=== PATIENT | female | born 1940 | race Caucasian/White ===

== ENCOUNTER 2018-03-08 05:50 | Inpatient (IN) | payer OTHER ==
[2018-03-02 15:23] VITALS: BMI 32.4
[2018-03-08] MEDS ORDERED: MIDAZOLAM HCL 2 MG/2 ML SINGLE DOSE VIAL ONE (07:00)
[2018-03-08] MEDS ORDERED: BUPIVACAINE HCL/PF (5 MG/ML) 30 ML VIAL IJ ONE (07:01)
[2018-03-08] MEDS ORDERED: BUPIVACAINE LIPOSOME/PF (EXPAREL) 266 MG/20 ML VIAL ONE (07:01)
[2018-03-08] MEDS ORDERED: KETOROLAC TROMETHAMINE 60 MG/2 ML VIAL ONE (07:52)
[2018-03-08] MEDS ORDERED: EPINEPHrine/PF 1 MG/1 ML (1:1,000) AMPULE ONE (07:52)
[2018-03-08] MEDS ORDERED: BUPIVACAINE HCL/PF 2.5 MG/ML - 30 ML VIAL IJ ONE (07:53)
[2018-03-08] MEDS ORDERED: MORPHINE SULFATE 10 MG/1 ML *VIAL ONE (07:56)
[2018-03-08] MEDS ORDERED: CEFAZOLIN 2 GM in DEXTROSE 5%-WATER - 50 ML IVPB ONE (08:00)
[2018-03-08] MEDS ORDERED: VANCOMYCIN 1,250 MG in DEXTROSE 5%-WATER - 250 ML IVPB ONE (08:00)
[2018-03-08] MEDS ORDERED: PROPOFOL 20 ML ONE (08:39)
[2018-03-08] MEDS ORDERED: ceFAZolin SODIUM 1 GM VIAL ONE ×2 (08:49→10:41)
[2018-03-08] MEDS ORDERED: DESFLURANE GAS 240 ML BOTTLE IH ONE (09:38)
[2018-03-08] MEDS ORDERED: fentaNYL CITRATE 250 MCG/5 ML VIAL ONE (09:48)
[2018-03-08] MEDS ORDERED: ONDANSETRON 4 MG/2 ML VIAL ONE (10:46)
[2018-03-08] MEDS ORDERED: ONDANSETRON 4 MG/2 ML VIAL IVPUSH PRN (11:37)
[2018-03-08] MEDS ORDERED: MAG HYDROX/AL HYDROX/SIMETH 30 ML UNIT-DOSE CUP PO PRN (11:37)
[2018-03-08] MEDS ORDERED: MAGNESIUM HYDROX 2400MG/30ML ORAL SUSPENSION 30 ML CUP PO PRN (11:37)
--- NOTE | 2018-03-08 11:37 | OP ---
Operative Note - Note: Operative Date: 03/08/18 Pre-Operative Diagnosis: Right knee osteoarthritis, degenerative joint disease Operation: Right total knee replacement Findings: as dictated Implants: as dictated Post-Operative Diagnosis: Same as Pre-op Surgeon: Luis Poon Pc Installation Engineer: Giorgio Friend Anesthesiologist/COSTING ANALYST: Geronimo Ching Anesthesia: General, Local (Block: selective tibial and saphenous blocks) Specimens Removed: bone cuts Estimated Blood Loss (mls): 25 (ml) Drains & Tubes with Location: Intra-articular hemovac. Tourniquet 118mins at 400mmHg Operative Report Dictated: Yes
[2018-03-08] MEDS ORDERED: LACTATED RINGERS SOLUTION 1,000 ML IV SCH ×2 (11:45→12:00)
[2018-03-08] MEDS ORDERED: ARTIFICIAL TEARS (POLYVINYL ALCOHOL) OPTH DROPS OU PRN (11:46)
[2018-03-08] MEDS ORDERED: ACETAMINOPHEN 1000 MG/100 ML VIAL (NON FORMULARY) IVPB ONE ×2 (11:49→11:55)
[2018-03-08] MEDS ORDERED: oxyCODONE HCL 5 MG TABLET PO PRN (11:49)
[2018-03-08] MEDS ORDERED: ONDANSETRON 4 MG/2 ML VIAL IVPUSH ONE (11:58)
--- NOTE | 2018-03-08 12:09 | CONSULT ---
Consultation: REQUESTING PROVIDER: Dr. Luis Poon CONSULT REQUEST: We have been asked to medically follow this patient in the post -operative phase. HISTORY OF PRESENT ILLNESS: 77 year-old female with a PMH significant for HTN, HLD, NIDDM, recurrent UTIs, trigeminal neuralgia, and right knee osteoarthritis s/p right total knee replacement today with Dr. Luis Poon. REVIEW OF SYSTEMS: CONSTITUTIONAL: Absent: fever, chills, diaphoresis, generalized weakness, malaise, loss of appetite, weight change HEENT: Absent: rhinorrhea, nasal congestion, throat pain, throat swelling, difficulty swallowing, mouth swelling, ear pain, eye pain, visual changes CARDIOVASCULAR: Absent: chest pain, syncope, palpitations, irregular heart rate, lightheadedness , peripheral edema RESPIRATORY: Absent: cough, shortness of breath, dyspnea with exertion, orthopnea, wheezing, stridor, hemoptysis GASTROINTESTINAL: Absent: abdominal pain, abdominal distension, nausea, vomiting, diarrhea, constipation, melena, hematochezia GENITOURINARY: Absent: dysuria, frequency, urgency, hesitancy, hematuria, flank pain, genital pain MUSCULOSKELETAL: Absent: myalgia, arthralgia, joint swelling, back pain, neck pain SKIN: Absent: rash, itching, pallor HEMATOLOGIC/IMMUNOLOGIC: Absent: easy bleeding, easy bruising, lymphadenopathy, frequent infections ENDOCRINE: Absent: unexplained weight gain, unexplained weight loss, heat intolerance, cold intolerance NEUROLOGIC: Absent: headache, focal weakness or paresthesias, dizziness, unsteady gait, seizure, mental status changes, bladder or bowel incontinence PSYCHIATRIC: Absent: anxiety, depression, suicidal or homicidal ideation, hallucinations. PHYSICAL EXAMINATION Vital Signs - 24 hr 03/08/18 03/08/18 06:44 11:45 Temperature 98.6 F 98.2 F Pulse Rate 74 86 Respiratory 18 22 H Rate Blood Pressure 178/84 H 162/61 O2 Sat by Pulse 98 Oximetry (%) GENERAL: Awake, alert, and fully oriented, in no acute distress. HEAD: Normal with no signs of trauma. EYES: Pupils equal, round and reactive to light, sclera anicteric, conjunctiva clear. No lid lag. EARS, NOSE, THROAT: Ears normal, nares patent, oropharynx clear without exudates. Moist mucous membranes. LUNGS: Breath sounds equal, clear to auscultation bilaterally. No wheezes, and no crackles. No accessory muscle use. HEART: Regular rate and rhythm, normal S1 and S2 + murmur ABDOMEN: Soft, nontender, not distended UPPER EXTREMITIES: 2+ pulses, warm, well-perfused. No cyanosis. No clubbing. Cap refill <2 seconds. No peripheral edema. LOWER EXTREMITIES: Surgical compression bandages, SCDs, TEDs in place, c/d/i; + flexion/extension toes NEUROLOGICAL: Cranial nerves II-XII intact. Normal speech. Laboratory Results - last 24 hr 03/08/18 06:34 POC Glucometer 163 Active Medications Generic Name Dose Route Start Last Admin Trade Name Freq PRN Reason Stop Dose Admin Acetaminophen 1,000 mg 03/08/18 11:49 Ofirmev Injection - IVPB 03/08/18 11:50 ONCE ONE Al Hydroxide/Mg Hydroxide 30 ml 03/08/18 11:37 Mylanta Oral Suspension - PO Q4H PRN DYSPEPSIA Aspirin 81 mg 03/08/18 22:00 Ecotrin - PO BID VAIBHAV Carbamazepine 300 mg 03/08/18 22:00 Tegretol Xr - PO BID VAIBHAV Fentanyl 50 mcg 03/08/18 11:49 Sublimaze Injection - IVPUSH [id number] PRN PAIN-PACU ORDER X 4 DOSES ONLY Gabapentin 400 mg 03/08/18 22:00 Neurontin - PO BID VAIBHAV Cefazolin Sodium 2 gm/ 50 mls @ 200 mls/hr 03/08/18 16:30 Dextrose IVPB 03/08/18 18:14 Q8H-IV VAIBHAV Lactated Ringer's 1,000 mls @ 125 mls/hr 03/08/18 11:45 Lactated Ringers Solution IV 03/09/18 06:00 ASDIR VAIBHAV Lactated Ringer's 1,000 mls @ 75 mls/hr 03/08/18 12:00 Lactated Ringers Solution IV ASDIR VAIBHAV Magnesium Hydroxide 30 ml 03/08/18 11:37 Milk Of Magnesia - PO PRN PRN CONSTIPATION Multivitamins/Minerals/Vitamin C 1 tab 03/09/18 10:00 Tab-A-Vit - PO DAILY VAIBHAV Nitrofurantoin Macrocrystals 50 mg 03/08/18 22:00 Macrodantin - PO HS VAIBHAV Non-Formulary Medication 1 each 03/08/18 11:46 Polyvinyl Alcohol/Povidone/Pf [Refresh Classic Eye Drops] OP ASDIR PRN FOR ITCHING Non-Formulary Medication 80 mg 03/09/18 10:00 Telmisartan [Micardis] PO DAILY VAIBHAV Ondansetron HCl 4 mg 03/08/18 11:37 Zofran Injection IVPUSH Q6H PRN NAUSEA Oxycodone HCl 5 mg 03/08/18 11:49 Roxicodone - PO Q3H PRN PAIN LEVEL 1-5 Oxycodone HCl 10 mg 03/08/18 11:49 Roxicodone - PO Q3H PRN PAIN LEVEL 6-10 Pantoprazole Sodium 40 mg 03/09/18 10:00 Protonix - PO DAILY VAIBHAV Quetiapine Fumarate 50 mg 03/08/18 22:00 Seroquel - PO HS VAIBHAV Rosuvastatin Calcium 10 mg 03/09/18 10:00 Crestor - PO DAILY VAIBHAV Senna/Docusate Sodium tablet 03/08/18 22:00 Pericolace - PO BID VAIBHAV ASSESSMENT/PLAN: 77 year-old female with a PMH significant for HTN, HLD, NIDDM, recurrent UTIs, trigeminal neuralgia, and right knee osteoarthritis s/p right total knee replacement today with Dr. Luis Poon. Right total knee replacement --POD #0 --pain management per surgery --perioperative antibiotics --follow Hemovac output, daily h/h --bowel regimen --incentive spirometry --ASA 81mg BID x 6 weeks Hypertension --valsartan 320mg daily (dose equivalent for telmisartan) Hyperlipidemia --continue Crestor NIDDM --Novolog sliding scale coverage Recurrent UTIs --continue Macrobid 50mg qhs long-term prophylaxis Trigeminal neuralgia --continue Gabapentin Insomnia --continue carbamazepine, Seroquel FEN Fluids: LR@75mL/hr Electrolytes: replete as indicated Nutrition: clears DVT prophylaxis: ASA, SCDs, TEDs, oob, ambulation Physical therapy Dispo: We will continue to follow the patient. Thank you for this consultative opportunity. Visit type - Emergency Visit Emergency Visit: No - New Patient This patient is new to me today: Yes Date on this admission: 03/08/18 - Critical Care Critical Care patient: No
[2018-03-08] MEDS ORDERED: FAMOTIDINE 20 MG PREMIXED IVPB IVPB ONE (12:15)
[2018-03-08] MEDS ORDERED: FAMOTIDINE 20 MG/50 ML IVPB 20 MG/50 ML MG IVPB ONE (12:18)
--- NOTE | 2018-03-08 13:11 | HP ---
CHIEF COMPLAINT: PCP: HISTORY OF PRESENT ILLNESS: ER course was notable for: (1) (2) (3) Recent Travel: PAST MEDICAL HISTORY: PAST SURGICAL HISTORY: Social History: Smoking: Alcohol: Drugs: Family History: Allergies blueberry Allergy (Severe, Verified 03/02/18 14:31) Rash,ITCHING strawberry Allergy (Severe, Verified 03/02/18 14:29) Itching,RED RASH No Known Drug Allergies Allergy (Verified 03/02/18 14:31) HOME MEDICATIONS: Home Medications Medication Instructions Recorded Aspirin [Ecotrin] 81 mg PO DAILY 03/02/18 Carbamazepine Xr [Tegretol Xr -] 300 mg PO BID 03/02/18 Gabapentin [Neurontin] 400 mg PO BID 03/02/18 Meloxicam 15 mg PO ASDIR PRN 03/02/18 Metformin HCl [Metformin HCl ER] 500 mg PO DAILY 03/02/18 Nitrofurantoin Macrocrystal 50 mg PO HS 03/02/18 [Nitrofurantoin] Polyvinyl Alcohol/Povidone/Pf 1 each OP ASDIR PRN 03/02/18 [Refresh Classic Eye Drops] Quetiapine Fumarate [Seroquel -] 50 mg PO HS 03/02/18 Rosuvastatin Calcium [Crestor] 10 mg PO DAILY 03/02/18 Sitagliptin Phosphate [Januvia] 100 mg PO DAILY 03/02/18 Telmisartan [Micardis] 80 mg PO DAILY 03/02/18 REVIEW OF SYSTEMS CONSTITUTIONAL: Absent: fever, chills, diaphoresis, generalized weakness, malaise, loss of appetite, weight change HEENT: Absent: rhinorrhea, nasal congestion, throat pain, throat swelling, difficulty swallowing, mouth swelling, ear pain, eye pain, visual changes CARDIOVASCULAR: Absent: chest pain, syncope, palpitations, irregular heart rate, lightheadedness , peripheral edema RESPIRATORY: Absent: cough, shortness of breath, dyspnea with exertion, orthopnea, wheezing, stridor, hemoptysis GASTROINTESTINAL: Absent: abdominal pain, abdominal distension, nausea, vomiting, diarrhea, constipation, melena, hematochezia GENITOURINARY: Absent: dysuria, frequency, urgency, hesitancy, hematuria, flank pain, genital pain MUSCULOSKELETAL: Absent: myalgia, arthralgia, joint swelling, back pain, neck pain SKIN: Absent: rash, itching, pallor HEMATOLOGIC/IMMUNOLOGIC: Absent: easy bleeding, easy bruising, lymphadenopathy, frequent infections ENDOCRINE: Absent: unexplained weight gain, unexplained weight loss, heat intolerance, cold intolerance NEUROLOGIC: Absent: headache, focal weakness or paresthesias, dizziness, unsteady gait, seizure, mental status changes, bladder or bowel incontinence PSYCHIATRIC: Absent: anxiety, depression, suicidal or homicidal ideation, hallucinations. PHYSICAL EXAMINATION Vital Signs - 24 hr 03/08/18 03/08/18 03/08/18 06:44 11:45 11:50 Temperature 98.6 F 98.2 F Pulse Rate 74 86 86 Respiratory 18 22 H 22 H Rate Blood Pressure 178/84 H 162/61 160/62 O2 Sat by Pulse 98 98 Oximetry (%) 03/08/18 03/08/18 03/08/18 11:55 12:00 12:15 Temperature Pulse Rate 86 85 81 Respiratory 22 H 20 18 Rate Blood Pressure 158/61 160/55 L 169/67 O2 Sat by Pulse 98 100 96 Oximetry (%) 03/08/18 03/08/18 12:30 12:45 Temperature Pulse Rate 88 80 Respiratory 18 18 Rate Blood Pressure 174/63 H 166/68 O2 Sat by Pulse 97 100 Oximetry (%) GENERAL: Awake, alert, and fully oriented, in no acute distress. HEAD: Normal with no signs of trauma. EYES: Pupils equal, round and reactive to light, extraocular movements intact, sclera anicteric, conjunctiva clear. No lid lag. EARS, NOSE, THROAT: Ears normal, nares patent, oropharynx clear without exudates. Moist mucous membranes. NECK: Normal range of motion, supple without lymphadenopathy, JVD, or masses. LUNGS: Breath sounds equal, clear to auscultation bilaterally. No wheezes, and no crackles. No accessory muscle use. HEART: Regular rate and rhythm, normal S1 and S2 without murmur, rub or gallop. ABDOMEN: Soft, nontender, not distended, normoactive bowel sounds, no guarding, no rebound, no masses. No hepatomegaly or splenomegaly. MUSCULOSKELETAL: Normal range of motion at all joints. No bony deformities or tenderness. No CVA tenderness. UPPER EXTREMITIES: 2+ pulses, warm, well-perfused. No cyanosis. No clubbing. No peripheral edema. LOWER EXTREMITIES: 2+ pulses, warm, well-perfused. No calf tenderness. No peripheral edema. NEUROLOGICAL: Cranial nerves II-XII intact. Normal speech. Normal gait. PSYCHIATRIC: Cooperative. Good eye contact. Appropriate mood and affect. SKIN: Warm, dry, normal turgor, no rashes or lesions noted, normal capillary refill. Laboratory Results - last 24 hr 03/08/18 03/08/18 06:34 11:51 POC Glucometer 163 244 ASSESSMENT/PLAN:
--- NOTE | 2018-03-08 15:31 | OP ---
DATE OF OPERATION: 03/08/2018 SURGEON: Luis Poon MD DIRECTOR OF WORKFORCE DEVELOPMENT: RAUL Zamora PREOPERATIVE DIAGNOSIS: Avascular necrosis with chondrolysis, right knee. POSTOPERATIVE DIAGNOSIS: Avascular necrosis with chondrolysis, right knee. OPERATION PERFORMED: Right cemented posterior stabilized total knee arthroplasty (Priya). ANESTHESIA: General anesthesia with peripheral block. ANTIBIOTICS: Kefzol 2 g, vancomycin 1 g preoperatively. Kefzol 1 g given at the time of release of tourniquet. OPERATION IN DETAIL: The patient was correctly identified and brought into the operating room. The right lower extremity was prepped and draped in the routine manner with Betadine scrub solution, wiped with alcohol, and DuraPrep was applied. No deformity noted here. A midline incision was utilized. The patella was capsized laterally after incising longitudinally the quadriceps tendon, skirting around the parapatellar margin on the medial side of the patella to the medial aspect of the tibial tubercle, the soft tissue directly off the bone. The Hoffa fat pad was three-quarters resected. The patella was capsized laterally. The [email or web address] jig system was inserted for the appropriate jig cuts. The tibia was cut to a neutral alignment, aligned to the tibial tubercle and centered with the talus. The starter drill was inserted into the actual entry point just anterior to the PCL. Tig setting was at 4.5 degrees of valgus and 3 degrees of external rotation. There was no proximalization of the joint line. The patella was cut from neutral from patellar ligament to the quadriceps tendon. The appropriate lollipop jig was applied for a 27-mm patellar button. The jigs were then inserted onto the femur and the jigs cutting made in one setting. This measured for a size 3 femur, size 3 tibia and a 27-mm patellar button. The spacer blocks inserted at 10 mm revealed an equal flexion/extension gap of 9 mm. Complete stability was appreciated in both the sagittal and coronal planes. Once this had been performed, all jig cuts had been made. The bone bed was thoroughly lavaged with pulse lavage. Cementing was in one stage; that is, femur, tibia and patella. All extraneous cement was removed. The knee was reduced with a 9-mm trial polyethylene liner and revealed excellent anatomic alignment and a full range of movement from 0 to 130 degrees, with complete stability from the coronal sagital rotational plane at 90 degrees of flexion and 0 degrees of flexion. Once the cement had cured and the extraneous cement was removed, the tissues were thoroughly lavaged. It must be noted that before cementing, the bone bed was thoroughly pulse lavaged appropriately to be rid of all fats and exudative products. The closure was as follows: Quadriceps tendon and prepatellar fascia 1 Vicryl, subcutaneous 1 and 2-0 Vicryl, skin 3-0 Monocryl with Steri-Strips. Drainage 1/8-inch Hemovac x1. The operation went extremely well with no complications. MD DONI Knox/[id number] MTDD
[2018-03-08] MEDS: CEFAZOLIN 2 GM/D5W 2 GM/50 ML ML IVPB SCH (16:30)
[2018-03-08] MEDS ORDERED: PT OWN MED DRAWER 7, Y5N ONE (21:12)
[2018-03-08] MEDS: NITROFURANTOIN MACROCRYSTAL 50 MG CAPSULE (FP) PO SCH ×2 (21:25→21:52)
[2018-03-08] MEDS: ASPIRIN COATED 81 MG TABLET.EC PO SCH (21:25)
[2018-03-08] MEDS: GABAPENTIN 400 MG CAPSULE (FP) PO SCH (21:25)
[2018-03-08] MEDS: QUEtiapine FUMARATE 25 MG TABLET (FP) PO SCH ×2 (21:25→21:52)
[2018-03-08] MEDS: SENNOSIDES/DOCUSATE COMBO (SENNA PLUS) TABLET (UD) PO SCH ×2 (21:25→21:52)
[2018-03-08] MEDS: INSULIN (NOVOLOG) ASPART 100 UNITS/ML 10ML VIAL SQ SCH ×2 (21:31→21:45)
[2018-03-09] MEDS: CEFAZOLIN 2 GM/D5W 2 GM/50 ML ML IVPB SCH (01:45)
[2018-03-09] MEDS: INSULIN (NOVOLOG) ASPART 100 UNITS/ML 10ML VIAL SQ SCH ×5 (06:44→21:38)
--- NOTE | 2018-03-09 08:07 | PN ---
Progress Note (short form) - Note Progress Note: POD #1 Alert. Sitting in chair at bedside. Daughter present who translated. C/o incisional pain. Adequate pain control with medications ordered. Denies n/v/f/c, CP, palpiations or SOB. Last Vital Signs Temp Pulse Resp BP Pulse Ox 99.0 F 83 18 157/47 L 96 //18 09:43 03/09/18 09:43 03/09/18 09:43 03/09/18 09:43 03/09/18 09:43 CBC, BMP 03/09/18 07:29 03/09/18 07:29 Gen: nad LE: RLE dressing c/d/i. hemovac 180 mL. calf soft/supple/nt bilat. leg in extension. Problem List - Problems (1) Right knee DJD Assessment/Plan: (1) Right knee DJD Assessment/Plan: POD #1 s/p Right TKR -Pain control. -DVT PPx: -Chemical: ASA 81 mg po BID x 6 weeks -Mechanical: SHEBA's, SCD's -Incentive Spirometry. -PT/OT/Rehab, OOB. -WBAT RLE -Will dc drain AM -f/u am labs. -Care per medical hospitalist team. 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
[2018-03-09 08:14] LABS: HEMOGLOBIN 10.6 GM/dl (10.7-15.3); MCH 27.8 pg (25.7-33.7); MCHC 32.1 g/dl (32.0-36.0); MEAN CELL VOLUME 86.6 fl (80-96); MEAN PLT VOLUME 8.9 fl (7.5-11.1); PLATELET COUNT 247 K/MM3 (134-434); RBC 3.81 M/mm3 (3.60-5.2); WHITE BLOOD COUNT 10.1 K/mm3 (4.0-10.8)
[2018-03-09 08:28] LABS: ANION GAP 5 MMOL/L (8-16); BLOOD UREA NITROGEN 8 mg/dl (7-18); CHLORIDE 102 mmol/L (98-107); CO2 27 mmol/L (22-28); CREATININE 0.5 mg/dl (0.6-1.3); GLUCOSE,RANDOM 226 mg/dl (74-106); MAGNESIUM 1.8 mg/dL (1.8-2.4); POTASSIUM 3.9 mmol/L (3.5-5.1); SODIUM 134 mmol/L (136-145)
[2018-03-09 08:33] LABS: ALBUMIN 3.1 g/dl (3.5-5.0); BILIRUBIN,TOTAL 0.4 mg/dl (0.2-1.0); TOT PROT 5.9 g/dl (6.4-8.3)
--- NOTE | 2018-03-09 08:37 | PN ---
Physical Exam: SUBJECTIVE: Patient seen and examined oob to chair. Just returned from physical therapy. Complaining of pain. OBJECTIVE: Vital Signs Period Temp Pulse Resp BP Sys/Webster Pulse Ox Last 24 Hr 98.2 F-99.8 F 75-88 16-22 132-174/44-71 96-100 GENERAL: Awake, alert, and fully oriented, in no acute distress. HEAD: Normal with no signs of trauma. EYES: Pupils equal, round and reactive to light, sclera anicteric, conjunctiva clear. No lid lag. EARS, NOSE, THROAT: Ears normal, nares patent, oropharynx clear without exudates. Moist mucous membranes. LUNGS: Breath sounds equal, clear to auscultation bilaterally. No wheezes, and no crackles. No accessory muscle use. HEART: Regular rate and rhythm, normal S1 and S2 + murmur ABDOMEN: Soft, nontender, not distended UPPER EXTREMITIES: 2+ pulses, warm, well-perfused. No cyanosis. No clubbing. Cap refill <2 seconds. No peripheral edema. LOWER EXTREMITIES: Surgical compression bandages, SCDs, TEDs in place, c/d/i; + flexion/extension toes NEUROLOGICAL: Cranial nerves II-XII intact. Normal speech. Laboratory Results - last 24 hr 03/08/18 03/08/18 03/08/18 11:51 18:40 21:19 POC Glucometer 244 168 185 03/09/18 06:36 POC Glucometer 172 Active Medications Generic Name Dose Route Start Last Admin Trade Name Freq PRN Reason Stop Dose Admin Al Hydroxide/Mg Hydroxide 30 ml 03/08/18 11:37 Mylanta Oral Suspension - PO Q4H PRN DYSPEPSIA Artificial Tears 1 drop 03/08/18 11:46 Artificial Tears OU DAILY PRN FOR ITCHING Aspirin 81 mg 03/08/18 22:00 03/08/18 21:25 Ecotrin - PO 81 mg BID VAIBHAV Administration Carbamazepine 300 mg 03/08/18 22:00 03/08/18 21:52 Tegretol Xr - PO Not Given BID VAIBHAV Fentanyl 50 mcg 03/08/18 11:49 Sublimaze Injection - IVPUSH [id number] PRN PAIN-PACU ORDER X 4 DOSES ONLY Gabapentin 400 mg 03/08/18 22:00 03/08/18 21:25 Neurontin - PO 400 mg BID VAIBHAV Administration Insulin Aspart 0 units 03/08/18 16:30 03/09/18 07:19 Novolog Vial SQ Not Given ACHS [facility] Protocol Magnesium Hydroxide 30 ml 03/08/18 11:37 Milk Of Magnesia - PO PRN PRN CONSTIPATION Multivitamins/Minerals/Vitamin C 1 tab 03/09/18 10:00 Tab-A-Vit - PO DAILY [facility] Nitrofurantoin Macrocrystals 50 mg 03/08/18 22:00 03/08/18 21:52 Macrodantin - PO Not Given HS [facility] Ondansetron HCl 4 mg 03/08/18 11:37 Zofran Injection IVPUSH Q6H PRN NAUSEA Oxycodone HCl 5 mg 03/08/18 11:49 Roxicodone - PO Q3H PRN PAIN LEVEL 1-5 Oxycodone HCl 10 mg 03/08/18 11:49 Roxicodone - PO Q3H PRN PAIN LEVEL 6-10 Pantoprazole Sodium 40 mg 03/09/18 10:00 Protonix - PO DAILY [facility] Quetiapine Fumarate 50 mg 03/08/18 22:00 03/08/18 21:52 Seroquel - PO Not Given HS [facility] Rosuvastatin Calcium 10 mg 03/09/18 10:00 Crestor - PO DAILY [facility] Senna/Docusate Sodium 2 tablet 03/08/18 22:00 03/08/18 21:52 Pericolace - PO Not Given BID [facility] Valsartan 320 mg 03/09/18 10:00 Diovan - PO DAILY [facility] ASSESSMENT/PLAN 77 year-old female with a PMH significant for HTN, HLD, NIDDM, recurrent UTIs, trigeminal neuralgia, and right knee osteoarthritis s/p right total knee replacement today with Dr. Luis Poon. Right total knee replacement --POD #1 --pain management per surgery --perioperative antibiotics complete --Hemovac 180cc's dark sanguinous fluid since last night; Hgb stable --bowel regimen --incentive spirometry --ASA 81mg BID x 6 weeks Hypertension --BP stable --valsartan 320mg daily (dose equivalent for telmisartan) Hyperlipidemia --continue Crestor NIDDM --Novolog sliding scale coverage Recurrent UTIs --continue Macrobid 50mg qhs long-term prophylaxis Trigeminal neuralgia --continue Gabapentin Insomnia --checked with pharmacy, patient on carbamazepine, Lexapro, Namenda, Seroquel and patient has been refusing to take these meds --called and spoke with PCP Dr. Headley [phone] who said patient is usually compliant; she does not have a diagnosis of dementia or a psych diagnosis but he has prescribed these meds which he believes are appropriate; gave no other diagnosis other than insomnia --will reinforce need to take prescribed meds with patient; nursing staff aware FEN Fluids: PO intake adequate Electrolytes: replete as indicated Nutrition: low sodium, diabetic DVT prophylaxis: ASA, SCDs, TEDs, oob, ambulation Physical therapy Dispo: We will continue to follow the patient. Thank you for this consultative opportunity. Visit type - Emergency Visit Emergency Visit: Yes ED Registration Date: 03/08/18 Care time: The patient presented to the Emergency Department on the above date and was hospitalized for further evaluation of their emergent condition. - New Patient This patient is new to me today: No - Critical Care Critical Care patient: No
[2018-03-09] MEDS: oxyCODONE HCL 5 MG TABLET PO PRN (08:41)
[2018-03-09 08:44] LABS: BILIRUBIN,DIRECT 0.1 mg/dL (0.0-0.3)
[2018-03-09] MEDS: ROSUVASTATIN CA 10 MG TABLET (FP) PO SCH (09:34)
[2018-03-09] MEDS: GABAPENTIN 400 MG CAPSULE (FP) PO SCH ×2 (09:34→21:38)
[2018-03-09] MEDS: VALSARTAN 160 MG TABLET (UD) PO SCH (09:34)
[2018-03-09] MEDS: ASPIRIN COATED 81 MG TABLET.EC PO SCH ×2 (09:34→21:38)
[2018-03-09] MEDS: MULTIVITAMINS (DAILY MVI) TABLET (FP) PO SCH (09:35)
[2018-03-09] MEDS: SENNOSIDES/DOCUSATE COMBO (SENNA PLUS) TABLET (UD) PO SCH ×2 (09:35→21:38)
[2018-03-09] MEDS: PANTOPRAZOLE 40 MG TABLET (FP) PO SCH (09:35)
[2018-03-09] MEDS ORDERED: PATIENT'S OWN MEDICATION (NON-FORMULARY) (Telmisartan [Micardis] 80 MG) PO SCH (10:00)
[2018-03-09] MEDS ORDERED: VALSARTAN 160 MG TABLET (UD) PO SCH (10:00)
--- NOTE | 2018-03-09 11:04 | PN ---
Progress Note (short form) - Note Progress Note: Anesthesia post op note, POD#1, S/P Right knee arthroplasty. Pat seen and examined, VSS. Started PT. Pain alleviates by taking po meds, but C /O nausea. No apparent post anesthesia complications. signed off.
[2018-03-09] MEDS ORDERED: PT OWN MED DRAWER 7, Y5N ONE (21:37)
[2018-03-09] MEDS: NITROFURANTOIN MACROCRYSTAL 50 MG CAPSULE (FP) PO SCH (21:38)
[2018-03-09] MEDS: QUEtiapine FUMARATE 25 MG TABLET (FP) PO SCH (21:38)
[2018-03-10] MEDS: INSULIN (NOVOLOG) ASPART 100 UNITS/ML 10ML VIAL SQ SCH ×2 (07:45→11:58)
[2018-03-10] MEDS: oxyCODONE HCL 5 MG TABLET PO PRN (07:50)
[2018-03-10 08:24] LABS: HEMATOCRIT 32.5 % (32.4-45.2); HEMOGLOBIN 10.5 GM/dl (10.7-15.3); MCH 27.9 pg (25.7-33.7); MCHC 32.3 g/dl (32.0-36.0); MEAN CELL VOLUME 86.3 fl (80-96); MEAN PLT VOLUME 8.7 fl (7.5-11.1); PLATELET COUNT 230 K/MM3 (134-434); RBC 3.77 M/mm3 (3.60-5.2); RDW 11.7 % (11.6-15.6); WHITE BLOOD COUNT 9.8 K/mm3 (4.0-10.8)
--- NOTE | 2018-03-10 08:49 | DS ---
Physical Exam: SUBJECTIVE: Patient seen and examined this am and used the phone meat pickler service for assistance to help translate. #[id number]. Voiding without difficulty. No CP/SOB. No bowel movements. Physical Therapy completed yesterday oob and ambulating. ROM 90 and straight leg raise good. OBJECTIVE: Vital Signs Temperature 98.8 F 03/10/18 06:00 Pulse Rate 89 03/10/18 06:00 Respiratory Rate 19 03/10/18 06:00 Blood Pressure 135/48 L 03/10/18 06:00 O2 Sat by Pulse Oximetry (%) 92 L 03/10/18 06:43 REAL-80/70ml serosangrenous PHYSICAL EXAM GENERAL: The patient is awake, alert, and fully oriented, in no acute distress. LUNGS: Breath sounds equal, clear to auscultation bilaterally, no wheezes, no crackles, no accessory muscle use. HEART: Regular rate and rhythm, S1, S2 without murmur, rub or gallop. ABDOMEN: Soft, nontender, nondistended EXTREMITIES: 2+ pulses, warm, well-perfused, Mild right ankle/foot swelling. Dressing c/d/i NEUROLOGICAL:5/5 dorsi/plantar flexion b/l. LABS CBC,CMP WBC 9.8 K/mm3 (4.0-10.8) 03/10/18 07:11 RBC 3.77 M/mm3 (3.60-5.2) 03/10/18 07:11 Hgb 10.5 GM/dl (10.7-15.3) L 03/10/18 07:11 Hct 32.5 % (32.4-45.2) 03/10/18 07:11 MCV 86.3 fl (80-96) 03/10/18 07:11 MCH 27.9 pg (25.7-33.7) 03/10/18 07:11 MCHC 32.3 g/dl (32.0-36.0) 03/10/18 07:11 RDW 11.7 % (11.6-15.6) 03/10/18 07:11 Plt Count 230 K/MM3 (134-434) 03/10/18 07:11 MPV 8.7 fl (7.5-11.1) 03/10/18 07:11 Sodium 134 mmol/L (136-145) L 03/09/18 07:29 Potassium 3.9 mmol/L (3.5-5.1) 03/09/18 07:29 Chloride 102 mmol/L (98-107) 03/09/18 07:29 Carbon Dioxide 27 mmol/L (22-28) 03/09/18 07:29 Anion Gap 5 MMOL/L (8-16) L 03/09/18 07:29 BUN 8 mg/dl (7-18) 03/09/18 07:29 Creatinine 0.5 mg/dl (0.6-1.3) L 03/09/18 07:29 Creat Clearance w eGFR > 60 (>60) 03/09/18 07:29 POC Glucometer 178 UNITS (80-120) 03/10/18 06:27 Random Glucose 226 mg/dl (74-106) H 03/09/18 07:29 Calcium 8.0 mg/dl (8.4-10.2) L 03/09/18 07:29 Magnesium 1.8 mg/dL (1.8-2.4) 03/09/18 07:29 Total Bilirubin 0.4 mg/dl (0.2-1.0) 03/09/18 07:29 Direct Bilirubin 0.1 mg/dL (0.0-0.3) 03/09/18 07:29 AST 22 U/L (10-42) 03/09/18 07:29 ALT 22 U/L (10-40) 03/09/18 07:29 Alkaline Phosphatase 60 U/L (32-92) 03/09/18 07:29 Total Protein 5.9 g/dl (6.4-8.3) L 03/09/18 07:29 Albumin 3.1 g/dl (3.5-5.0) L 03/09/18 07:29 HOSPITAL COURSE: The patient was admitted to the Med-Surg Unit after an elective repair of their Degenerative joint disease. Now, s/p R TKR 03/08. An xray was obtained in the OR and confirmed hardware placement in good position with no fractures or dislocations. The day of surgery, the patient ambulated the hallways with assistance. Narcotic and non-narcotic pain management control was achieved with an oral and IV approach. POD #2, the surgical drain was removed fully intact and without incident. Kaylen-operative IV ABX were administered. DVT prophylaxis was achieved with SCDs and early ambulation. The patient ambulated with Physical Therapy and home Physical THerpay wasrecommended upon discharge. Narcotic scripts and or muscle relaxants were checked with [place] DEVELOP[employer] ADVISOR prior to escibe. The discharge instructions and an oral pain management plan were reviewed with the patient. All questions answered. Above plan discussed with Dr. Poon and agreed. Date of Admission:03/08/18 Date of Discharge: 03/10/18 Minutes to complete discharge: 30 Visit type - Case Type Case Type: Scheduled - Emergency Emergency Visit: No - New patient This patient is new to me today: Yes Date on this admission: 03/10/18
[2018-03-10 09:31] VITALS: BP 125/37; PULSE 93; TEMP 98.2
[2018-03-10] MEDS: MULTIVITAMINS (DAILY MVI) TABLET (FP) PO SCH (10:19)
[2018-03-10] MEDS: GABAPENTIN 400 MG CAPSULE (FP) PO SCH (10:19)
[2018-03-10] MEDS: PANTOPRAZOLE 40 MG TABLET (FP) PO SCH (10:19)
[2018-03-10] MEDS: ASPIRIN COATED 81 MG TABLET.EC PO SCH (10:19)
[2018-03-10] MEDS: ROSUVASTATIN CA 10 MG TABLET (FP) PO SCH (10:19)
[2018-03-10] MEDS: SENNOSIDES/DOCUSATE COMBO (SENNA PLUS) TABLET (UD) PO SCH (10:27)
[2018-03-10] MEDS: VALSARTAN 160 MG TABLET (UD) PO SCH (10:27)
--- NOTE | 2018-03-10 11:54 | SURG ---
Surgery Needle Loom Setter Note Needle Loom Setter: Giorgio Friend PA-C (Suzy) Date of Service: 03/10/18 Diagnosis: Right knee osteoarthritis, degenerative joint disease Procedure: Right total knee replacement I was present for the entirety of the operative procedure. For further detail, please refer to operative report. Visit type - Case Type Case Type: Scheduled - Emergency Emergency Visit: No - New patient This patient is new to me today: Yes Date on this admission: 03/10/18 - Critical Care Critical Care patient: No
[2018-03-10] MEDS ORDERED: INSULIN (NOVOLOG) ASPART 100 UNITS/ML 10ML VIAL ONE (11:56)
--- NOTE | 2018-03-10 15:24 | PATH ---
Surgical Pathology Report Patient Name: EMILY TAN Med. Rec. #: [id number] /Age/Gender: 1940 (Age: 77) / F Account: [id number] Location: COUNT INCLUDES THE [facility] Taken: 03/08/2018 Received: 03/08/2018 Reported: 03/10/2018 Physicians: Luis Poon M.D. Specimen(s) Received RIGHT KNEE BONES Clinical History Right knee osteoarthritis Final Diagnosis RIGHT KNEE BONES, RESECTION: DEGENERATIVE JOINT DISEASE, RIGHT KNEE. Electronically Signed Harinder Conte M.D. Gross Description Received in formalin labeled "right knee bone," is a 12.0 x 10.5 x 2.0 cm aggregate of multiple portions of bone and soft tissue. The tibial plateau measures 7.5 x 5.0 x 1.8 cm. No areas of eburnation are identified. The articular surfaces are ram-yellow and focally granular. The underlying trabecular bone is yellow and hard. Cold Strip Feeder sections are submitted in one cassette, following decalcification. 03/09/201803/09/2018
== END 2018-03-10 13:25 | disposition home or self-care (01) | DRG 470 ==
LOC: FM/S 05:50
PROVIDERS: ADMIT Orthopaedic Surgery Orthopaedic Surgery of the Spine; ATTEND Orthopaedic Surgery Orthopaedic Surgery of the Spine
PROC: 0SRC0J9 Replacement of Right Knee Joint with Synthetic Substitute, Cemented, Open Approach (ICD-10-PCS; principal; 2018-03-08 09:21)
DX: M17.11 Unilateral primary osteoarthritis, right knee (principal); M87.08 Idiopathic aseptic necrosis of bone, other site; N39.0 Urinary tract infection, site not specified; I10 Essential (primary) hypertension; E78.5 Hyperlipidemia, unspecified; E11.9 Type 2 diabetes mellitus without complications; G50.0 Trigeminal neuralgia; G47.00 Insomnia, unspecified
CPT/HCPCS: 36415; 73560-TC-RT-FY; 80048; 80076; 82962; 83735; 85027; 88304-TC; 88311-TC; 94760; 97116-GP; 97162-GP; J0131

== ENCOUNTER 2021-01-28 06:00 | Inpatient (IN) | payer OTHER ==
[2021-01-28] MEDS ORDERED: BUPIVACAINE LIPOSOME/PF (EXPAREL) 266 MG/20 ML VIAL ONE (06:53)
[2021-01-28] MEDS ORDERED: BUPIVACAINE HCL/PF 0.5% (5MG/ML) 10 ML VIAL ONE ×2 (06:53→07:40)
[2021-01-28] MEDS ORDERED: MIDAZOLAM HCL 2 MG/2 ML SINGLE DOSE VIAL ONE (06:53)
[2021-01-28] MEDS ORDERED: ACETAMINOPHEN 1000 MG/100 ML VIAL IVPB ONE (07:38)
[2021-01-28] MEDS ORDERED: PROMETHAZINE HCL 25 MG/1 ML VIAL IVPUSH PRN (07:38)
[2021-01-28] MEDS ORDERED: DEXMEDETOMIDINE HCL 200 MCG/2 ML IVPB ONE (07:40)
[2021-01-28] MEDS ORDERED: BENZOIN 118 ML SPRAY.PUMP TP ONE (11:48)
[2021-01-28] MEDS ORDERED: TRANEXAMIC ACID 1000 MG/10 ML VIAL ONE (12:13)
[2021-01-28] MEDS ORDERED: POLYVINYL ALCOHOL OU PRN (12:42)
[2021-01-28] MEDS ORDERED: [UNRECOGNIZED DRUG - OTHER] OU PRN (12:42)
[2021-01-28] MEDS ORDERED: POVIDONE OU PRN (12:42)
[2021-01-28] MEDS ORDERED: MAGNESIUM HYDROX 2400MG/30ML ORAL SUSPENSION 30 ML CUP PO PRN (12:43)
[2021-01-28] MEDS ORDERED: MAG HYDROX/AL HYDROX/SIMETH 30 ML UNIT-DOSE CUP PO PRN (12:43)
[2021-01-28] MEDS ORDERED: ONDANSETRON 4 MG/2 ML VIAL IVPUSH PRN (12:43)
[2021-01-28] MEDS ORDERED: LACTATED RINGERS SOLUTION 1,000 ML IV SCH (12:45)
[2021-01-28] MEDS ORDERED: ACETAMINOPHEN INJECTION 100 ML IVPB ONE (12:57)
[2021-01-28] MEDS: oxyCODONE HCL 5 MG TABLET PO PRN ×2 (14:11→19:26)
[2021-01-28] MEDS: INSULIN (NOVOLOG) ASPART 100 UNITS/ML 10ML VIAL SQ SCH ×2 (16:35→21:40)
[2021-01-28] MEDS ORDERED: DEXTROSE 5%-WATER - 50 ML IVPB ONE ×2 (18:17→23:17)
[2021-01-28] MEDS ORDERED: ceFAZolin SODIUM 1 GM VIAL ONE ×2 (18:17→23:16)
[2021-01-28] MEDS: CEFAZOLIN 2 GM in DEXTROSE 5%-WATER - 50 ML IVPB SCH ×2 (18:33→23:22)
[2021-01-28] MEDS: NAPHAZOLINE/PHENIRAMINE OPHTHALMIC 15 ML BOTTLE OU SCH ×2 (18:34→23:25)
[2021-01-28] MEDS: NITROFURANTOIN MACROCRYSTAL 50 MG CAPSULE (FP) PO SCH (21:35)
[2021-01-28] MEDS: ASPIRIN COATED 81 MG TABLET.EC PO SCH (21:35)
[2021-01-28] MEDS: GABAPENTIN 400 MG CAPSULE PO SCH (21:35)
[2021-01-28] MEDS: QUEtiapine FUMARATE 25 MG TABLET PO SCH (21:36)
[2021-01-28] MEDS: SENNOSIDES/DOCUSATE COMBO (SENNA PLUS) TABLET (UD) PO SCH (21:36)
[2021-01-28] MEDS: ARTIFICIAL TEARS (POLYVINYL ALCOHOL) OPTH DROPS OU SCH (23:25)
[2021-01-29] MEDS: oxyCODONE HCL 5 MG TABLET PO PRN ×5 (00:30→21:46)
[2021-01-29] MEDS ORDERED: ceFAZolin SODIUM 1 GM VIAL ONE (05:32)
[2021-01-29] MEDS ORDERED: DEXTROSE 5%-WATER - 50 ML IVPB ONE (05:32)
[2021-01-29] MEDS: CEFAZOLIN 2 GM in DEXTROSE 5%-WATER - 50 ML IVPB SCH (06:01)
[2021-01-29] MEDS: INSULIN (NOVOLOG) ASPART 100 UNITS/ML 10ML VIAL SQ SCH ×4 (06:25→21:10)
[2021-01-29] MEDS: sitaGLIPtin PHOSPHATE 50 MG TABLET PO SCH (06:26)
[2021-01-29] MEDS: REPAGLINIDE 1 MG TABLET PO SCH (06:26)
[2021-01-29] MEDS: ARTIFICIAL TEARS (POLYVINYL ALCOHOL) OPTH DROPS OU SCH ×3 (06:27→21:07)
[2021-01-29] MEDS: NAPHAZOLINE/PHENIRAMINE OPHTHALMIC 15 ML BOTTLE OU SCH ×4 (06:27→23:08)
[2021-01-29 06:47] VITALS: BMI 31.7
[2021-01-29 08:08] LABS: HEMATOCRIT 37.3 % (32.4-45.2); HEMOGLOBIN 12.3 GM/dl (10.7-15.3); MCH 27.9 pg (25.7-33.7); MCHC 32.8 g/dl (32.0-36.0); MEAN CELL VOLUME 85.1 fl (80-96); MEAN PLT VOLUME 8.1 fl (7.5-11.1); PLATELET COUNT 290 10^3/uL (134-434); RBC 4.39 M/mm3 (3.60-5.2); RDW 11.9 % (11.6-15.6); WHITE BLOOD COUNT 11.6 K/mm3 (4.0-10.8)
[2021-01-29 08:59] LABS: CALCIUM 8.4 mg/dl (8.5-10); CREATININE 0.6 mg/dl (0.55-1.3)
[2021-01-29] MEDS ORDERED: carBAMazepine XR 200 MG TAB.ER.12H ONE (09:04)
[2021-01-29] MEDS: CARBAMAZEPINE PO SCH (09:08)
[2021-01-29] MEDS: NIFEdipine E.R. 30 MG TABLET PO SCH (09:08)
[2021-01-29] MEDS: ASPIRIN COATED 81 MG TABLET.EC PO SCH ×2 (09:09→21:08)
[2021-01-29] MEDS: SENNOSIDES/DOCUSATE COMBO (SENNA PLUS) TABLET (UD) PO SCH ×2 (09:09→21:08)
[2021-01-29] MEDS: GABAPENTIN 400 MG CAPSULE PO SCH ×2 (09:10→21:08)
[2021-01-29] MEDS: PANTOPRAZOLE 40 MG TABLET PO SCH (09:10)
[2021-01-29] MEDS: LISINOPRIL 20 MG TABLET PO SCH (09:10)
[2021-01-29] MEDS: CELECOXIB 200 MG CAPSULE PO SCH (09:10)
[2021-01-29] MEDS ORDERED: OLOPATADINE HCL OU SCH (10:00)
[2021-01-29] MEDS: NITROFURANTOIN MACROCRYSTAL 50 MG CAPSULE (FP) PO SCH (21:08)
[2021-01-29] MEDS: QUEtiapine FUMARATE 25 MG TABLET PO SCH (21:08)
[2021-01-29] MEDS ORDERED: ROSUVASTATIN CA 10 MG TABLET (FP) PO SCH (22:00)
[2021-01-30] MEDS: INSULIN (NOVOLOG) ASPART 100 UNITS/ML 10ML VIAL SQ SCH ×2 (06:05→16:19)
[2021-01-30] MEDS: sitaGLIPtin PHOSPHATE 50 MG TABLET PO SCH (06:06)
[2021-01-30] MEDS: REPAGLINIDE 1 MG TABLET PO SCH (06:07)
[2021-01-30] MEDS: oxyCODONE HCL 5 MG TABLET PO PRN ×3 (06:07→13:39)
[2021-01-30] MEDS: NAPHAZOLINE/PHENIRAMINE OPHTHALMIC 15 ML BOTTLE OU SCH ×2 (06:08→13:41)
[2021-01-30] MEDS: ARTIFICIAL TEARS (POLYVINYL ALCOHOL) OPTH DROPS OU SCH ×2 (06:08→13:42)
[2021-01-30 06:34] VITALS: TEMP 98.9
[2021-01-30 08:14] LABS: HEMATOCRIT 34.7 % (32.4-45.2); HEMOGLOBIN 11.5 GM/dl (10.7-15.3); MEAN CELL VOLUME 84.6 fl (80-96); MEAN PLT VOLUME 8.3 fl (7.5-11.1); PLATELET COUNT 265 10^3/uL (134-434); RDW 12.1 % (11.6-15.6)
[2021-01-30] MEDS ORDERED: carBAMazepine XR 200 MG TAB.ER.12H ONE (08:47)
[2021-01-30] MEDS: GABAPENTIN 400 MG CAPSULE PO SCH (09:01)
[2021-01-30] MEDS: LISINOPRIL 20 MG TABLET PO SCH (09:01)
[2021-01-30] MEDS: ASPIRIN COATED 81 MG TABLET.EC PO SCH (09:01)
[2021-01-30] MEDS: NIFEdipine E.R. 30 MG TABLET PO SCH (09:01)
[2021-01-30] MEDS: PANTOPRAZOLE 40 MG TABLET PO SCH (09:02)
[2021-01-30] MEDS: CARBAMAZEPINE PO SCH (09:02)
[2021-01-30] MEDS: SENNOSIDES/DOCUSATE COMBO (SENNA PLUS) TABLET (UD) PO SCH (09:02)
[2021-01-30] MEDS: CELECOXIB 200 MG CAPSULE PO SCH (13:39)
[2021-01-30 14:05] VITALS: BP 147/47; PULSE 100
== END 2021-01-30 17:38 | disposition home or self-care (01) | DRG 470 ==
LOC: FASUSAT 06:00 → FM/S 13:42 → FASUSAT 21:33 → FM/S 21:37
PROVIDERS: ADMIT Orthopaedic Surgery Orthopaedic Surgery of the Spine; ATTEND Orthopaedic Surgery Orthopaedic Surgery of the Spine
PROC: 0SRD0JZ Replacement of Left Knee Joint with Synthetic Substitute, Open Approach (ICD-10-PCS; principal; 2021-01-28 10:26)
DX: M17.12 Unilateral primary osteoarthritis, left knee (principal); I10 Essential (primary) hypertension; E11.9 Type 2 diabetes mellitus without complications; E78.5 Hyperlipidemia, unspecified; G50.0 Trigeminal neuralgia; Z79.84 Long term (current) use of oral hypoglycemic drugs; G47.00 Insomnia, unspecified; Z87.440 Personal history of urinary (tract) infections
CPT/HCPCS: 36415; 73560-TC-LT-FY; 80048; 82962; 85027; 94010; 94760; 97010-GP; 97116-GP; 97163-GP; C9803; J0131; U0003; U0005